=== PATIENT | female | born 1995 | race Two or more races ===

== ENCOUNTER 2016-07-28 17:44 | Emergency (ER) | payer OTHER ==
[~2016-07-28 17:44] MED LIST: CEPH-460 PO; PROZ20CA11 PO
--- NOTE | 2016-07-28 19:14 | PD ---
HPI Chief Complaint Patient complains of some contractions denies bleeding or ruptured membranes, did note decreased movement. [facility] and that was sent over here because of the NST related Date Seen: Jul 28, 2016 Travel History International Travel<30 Days: No Contact w/Intl Traveler<30Days: No History of Present Illness HPI Patient is a 21-year-old white female at 37 weeks is followed for [facility] and was sent over because of a NST and decreased movement. She also complains of contraction activity no bleeding or rupture the membranes, heart rate tracing reactive here on OB ED and only an occasional contraction seen Para: 1 : 2 History Obstetric History Obstetric History One vaginal delivery Social History Alcohol Use: No Tobacco Use: No Substance Abuse: No Allergies-Medications (Allergen,Severity, Reaction): Coded Allergies: Augmentin (Verified Allergy, Severe, RASH, 07/21/16) Penicillin (Verified Allergy, Severe, Hives, 07/21/16) Ampicillin (Verified Allergy, Unknown, 07/21/16) Home Meds Active Scripts Cephalexin (Keflex)500 Mg [id number] Mg PO Q8H #21 CAP Ref 0 Prov:Keira Lopez CNM [facility] 07/21/16 Fluoxetine (Prozac)20 Mg Cap20 Mg PO DAILY #30 CAP Ref 6 Prov:Keira Lopez CNM [facility] 07/21/16 Discontinued Scripts Cephalexin (Keflex)500 Mg [id number] Mg PO Q8H #21 CAP Ref 0 Prov:Dominique Palmer [facility] 07/13/16 Fluoxetine (Prozac)20 Mg Cap20 Mg PO DAILY #30 CAP Ref 6 Prov:Sunitha Pendleton MD 06/16/16 Review of Systems Gastrointestinal: Abdominal Pain Physical Exam Narrative GENERAL: Well-nourished, well-developed patient. SKIN: Warm and dry. HEAD: Normocephalic and atraumatic. EYES: No scleral icterus. No injection or drainage. ENT: No nasal drainage noted. Mucous membranes pink. Airway patent. NECK: Supple, trachea midline. No JVD. CARDIOVASCULAR: Regular rate and rhythm without murmurs, gallops, or rubs. RESPIRATORY: Breath sounds equal bilaterally. No accessory muscle use. BREASTS: Bilateral exam showed no masses , no retractions, no nipple discharge. ABDOMEN/GI: Abdomen soft, non-tender, bowel sounds present, no rebound, no guarding Gravid to [37-] weeks size Fundal Height: [-36 cm] GENITOURINARY: External Genitalia: intact and normal in appearance BUS glands: [-] Cervix:] Posterior Dilatation: [-finger tip] Effacement: [-thick] Station: [-3] Presentation: [-vtx] Membranes: [intact ] Uterine Contractions: [-occasional] FHT's: Category: [-1] Baseline: [144-] Reactive: [-] Variability: [-] Decels: [none-] EXTREMITIES: No cyanosis or edema. BACK: Nontender without obvious deformity. No CVA tenderness. NEUROLOGICAL: Awake and alert. Motor and sensory grossly within normal limits. Five out of 5 muscle strength in all muscle groups. Normal speech. [facility] Medical Record Reviewed: No Interpretation(s) Patient is a 37 week intrauterine referred over from [facility] for a repeat NST and a valve or decreased movement pain. Patient's having some abdominal pain and describes minimal decreased movement no bleeding or rupture the membranes. heart rate tracing reactive here and there all in occasional contraction. Plan Plan for the patient to be discharged home to the [facility] addressed as needed Tylenol for pain increase her fluid intake heating pad or hot bath can be done and she is to follow-up with [facility] Diagnosis Diagnosis: Primary Impression: Regino Morgan contractions Additional Impression: Decreased movement affecting management of in third trimester Disposition: 01 DISCHARGE HOME Condition: Stable Patient Instructions: General Instructions Departure Forms: Tests/Procedures Brendan Guillen II, MD Jul 28, 2016 19:14
[2016-08-10] MEDS ORDERED: TERC20CR VAGINAL (15:51)
[2016-09-10] MEDS ORDERED: PROZ20CA11 PO (09:42)
== END 2016-07-28 19:15 | disposition home or self-care (01) ==
LOC: HOBED 17:44
DX: O47.1 False labor at or after 37 completed weeks of gestation (principal); O36.8130 Decreased fetal movements, third trimester, not applicable or unspecified; Z3A.37 37 weeks gestation of pregnancy
CPT/HCPCS: 59025

== ENCOUNTER 2016-08-13 14:38 | Emergency (ER) | payer OTHER ==
[~2016-08-13 14:38] MED LIST changes: -CEPH-460 PO; +TERC20CR VAGINAL
[2016-08-13 14:56] VITALS: BP 124/80; PULSE 90
--- NOTE | 2016-08-13 15:13 | PD ---
HPI Chief Complaint contractions Date Seen: Aug 13, 2016 Time Seen: 15:06 (Karthik Paredes MD R1) Travel History International Travel<30 Days: No Contact w/Intl Traveler<30Days: No (Karthik Paredes MD R1) History of Present Illness HPI 21 y/o at 39/4 weeks presents for contractions. States she developed cramping last night that turned into contractions. Unsure of how far apart they are. States they cause a lot of pressure and are painful. Denies vaginal bleeding, loss of fluids. Endorses movement. Denies any complications with this . No dysuria. Endorses headaches and swelling in her legs the last few weeks. No lightheadedness/dizziness, chest pain, SOB, leg pain. [facility]. Para: 1 : 2 (Karthik Paredes MD R1) History Past Medical History Medical History: Denies Significant Hx (Karthik Paredes MD R1) Obstetric History Obstetric History , born at term (Karthik Paredes MD R1) Past Surgical History Narrative Surgical breast augmentation 02/2015 (Karthik Paredes MD R1) Family History Family History: Negative (Karthik Paredes MD R1) Social History Alcohol Use: No Tobacco Use: No Substance Abuse: No (Karthik Paredes MD R1) Allergies-Medications (Allergen,Severity, Reaction): Coded Allergies: Augmentin (Verified Allergy, Severe, RASH, 08/10/16) Penicillin (Verified Allergy, Severe, Hives, 08/10/16) Ampicillin (Verified Allergy, Unknown, 08/10/16) Home Meds Active Scripts Terconazole Vaginal Cream (Terazol 3 Vaginal Cream)0.8 % Cream1 Appl VAGINAL HS #20 GM Ref 0 1 applicatorful intravaginally x 3 nights Prov:Keira Lopez CNM [facility] 08/10/16 Fluoxetine (Prozac)20 Mg Cap20 Mg PO DAILY #30 CAP Ref 6 Prov:Keira Lopez CNM [facility] 07/21/16 Narrative Medication Prozac Subutex 3 daily (Karthik Paredes MD R1) Review of Systems General / Constitutional: Weight Gain, No: Fever, Weight Loss, Chills Eyes: No: Blurred Vision, Visual changes HENT: Headaches, No: Lightheadedness Cardiovascular: Edema, No: Irregular Rhythm, Chest Pain or Discomfort, Palpitations, Syncope Respiratory: No: Cough, Short of Breath Gastrointestinal: No: Nausea, Vomiting, Diarrhea, Abdominal Pain, Constipation Genitourinary: Pelvic Pain, No: Urgency, Frequency, Dysuria, Nocturia, Hematuria, Discharge, Vaginal Bleeding Musculoskeletal: Edema, No: Limited ROM, Weakness Skin: No Rash, No Itching Neurologic: No: Weakness, Dizziness, Syncope Psychiatric: No: Anxiety, Depression Endocrine: No: Heat Intolerance, Cold Intolerance Hematologic/Lymphatic: No Easy Bruising, No Lymph Node Enlargement (Karthik Paredes MD R1) Physical Exam Narrative GENERAL: Well-nourished, well-developed patient. SKIN: Warm and dry. HEAD: Normocephalic and atraumatic. EYES: No scleral icterus. No injection or drainage. ENT: No nasal drainage noted. Mucous membranes pink. Airway patent. NECK: Supple, trachea midline. No JVD. CARDIOVASCULAR: Regular rate and rhythm without murmurs, gallops, or rubs. RESPIRATORY: Breath sounds equal bilaterally. No accessory muscle use. ABDOMEN/GI: Abdomen soft, non-tender, bowel sounds present, no rebound, no guarding Gravid to 39 weeks size Fundal Height: 39 GENITOURINARY: Dilatation: 3-4 Effacement: 70% Station: -2 Presentation: vertex Membranes: intact Uterine Contractions: none FHT's: Category: 1 Baseline:155 Reactive: yes Variability: moderate Decels: none EXTREMITIES: No cyanosis or edema. BACK: Nontender without obvious deformity. No CVA tenderness. NEUROLOGICAL: Awake and alert. Motor and sensory grossly within normal limits. Five out of 5 muscle strength in all muscle groups. Normal speech. (Karthik Paredes MD R1) Data Data Vital Signs Reviewed: Yes (Karthik Paredes MD R1) MDM Medical Record Reviewed: Yes Interpretation(s) 21 y/o at 39/4 weeks presents with contractions. Ruskin schaeffer vs latent labor Cervical exam: 3-4/70/-2 Plan - Continuous FHT - Monitor vitals Narrative Course / MDM Category 1 tracing. FHT is reactive. No regular contractions Discussed with patient and gave option of walking around and rechecking in 1 hour or going home to walk around and progress She would like to go home and walk around. Instructed to return to ED if worsening pain, regular contractions or other signs of labor. (Karthik Paredes MD R1) Attending Attestation 21 yo @ 39w4d with care at [facility]. Uncomplicated . Patient c/o irregular UC, no VB, LOF. +FM. NST reactive, CAT I Irregular UC with SVE 3-4cm Latent labor, offered recheck in one hour. Patient desires to go home and with return if UC become more regular, stronger or if LOF. Labor precautions reviewed. Patient seen and examined. D/w Dr. Paredes. (Lorna Ring MD) Diagnosis Diagnosis: Primary Impression: Qualified Code: Z3A.39 - 39 weeks gestation of Disposition: 01 DISCHARGE HOME Condition: Stable Karthik Paredes MD R1 Aug 13, 2016 15:13 Lorna Ring MD Aug 13, 2016 16:17
[2016-08-14] MEDS ORDERED: SUBO8MIS SL (14:01)
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
[2016-09-10] MEDS ORDERED: PROZ20CA11 PO (09:42)
== END 2016-08-13 16:10 | disposition home or self-care (01) ==
LOC: HOBED 14:38
DX: O26.93 Pregnancy related conditions, unspecified, third trimester (principal); Z3A.39 39 weeks gestation of pregnancy
CPT/HCPCS: 59025

== ENCOUNTER 2016-08-14 13:20 | Emergency (ER) | payer OTHER ==
[2016-08-14] MEDS ORDERED: SUBO8MIS SL (14:01)
--- NOTE | 2016-08-14 14:20 | PD ---
HPI Chief Complaint contractions Date Seen: Aug 14, 2016 Time Seen: 14:01 (Karthik Paredes MD R1) Travel History International Travel<30 Days: No Contact w/Intl Traveler<30Days: No Known Affected Area: No (Karthik Paredes MD R1) History of Present Illness HPI 21 y/o at 39/5 presents for contractions. Was seen yesterday in ED for cramping and contractions. In the ED, she had no contractions and decided to go home and walk around and progress at home. Since then, she tried to get some sleep, but couldn't sleep because of contractions. Stated they became more painful since yesterday and closer together. She states they were 4-6 minutes apart early this morning. Denies vaginal bleeding, loss of fluids. Endorses movement. Denies headaches, changes in vision, RUQ pain, dysuria. No chest pain, lightheadedness/dizziness, SOB, leg pain, edema. Para: 1 : 2 (Karthik Paredes MD R1) History Past Medical History Medical History: Denies Significant Hx (Karthik Paredes MD R1) Obstetric History Obstetric History , born at term (Karthik Paredes MD R1) Past Surgical History Narrative Surgical Breast augmentation 02/2015 (Karthik Paredes MD R1) Family History Family History: Negative (Karthik Paredes MD R1) Social History Alcohol Use: No Tobacco Use: No Substance Abuse: No (Karthik Paredes MD R1) Allergies-Medications (Allergen,Severity, Reaction): Coded Allergies: Augmentin (Verified Allergy, Severe, RASH, 08/14/16) Penicillin (Verified Allergy, Severe, Hives, 08/14/16) Ampicillin (Verified Allergy, Unknown, 08/14/16) Home Meds Active Scripts Terconazole Vaginal Cream (Terazol 3 Vaginal Cream)0.8 % Cream1 Appl VAGINAL HS #20 GM Ref 0 1 applicatorful intravaginally x 3 nights Prov:Keira Lopez CNM [facility] 08/10/16 Fluoxetine (Prozac)20 Mg Cap20 Mg PO DAILY #30 CAP Ref 6 Prov:Keira Lopez CNM [facility] 07/21/16 Reported Medications Buprenorphine-Naloxone Sublingual Film (Suboxone Sublingual Film)8-2 Mg Film1 Film SL Unique ID number required: 08/14/16 Review of Systems General / Constitutional: Weight Gain, No: Fever, Weight Loss, Chills Eyes: No: Blurred Vision, Visual changes HENT: No: Headaches, Vertigo Cardiovascular: No: Irregular Rhythm, Chest Pain or Discomfort, Palpitations Respiratory: No: Cough, Short of Breath Gastrointestinal: No: Nausea, Vomiting, Diarrhea, Abdominal Pain, Constipation Genitourinary: Pelvic Pain, Discharge, No: Urgency, Frequency, Dysuria, Vaginal Bleeding Musculoskeletal: No: Limited ROM, Weakness Skin: No Rash, No Itching Neurologic: No: Weakness, Dizziness, Headache Psychiatric: No: Anxiety, Depression Endocrine: No: Heat Intolerance, Cold Intolerance Hematologic/Lymphatic: No Easy Bruising, No Lymph Node Enlargement (Karthik Paredes MD R1) Physical Exam Narrative GENERAL: Well-nourished, well-developed patient. SKIN: Warm and dry. HEAD: Normocephalic and atraumatic. EYES: No scleral icterus. No injection or drainage. ENT: No nasal drainage noted. Mucous membranes pink. Airway patent. NECK: Supple, trachea midline. No JVD. CARDIOVASCULAR: Regular rate and rhythm without murmurs, gallops, or rubs. RESPIRATORY: Breath sounds equal bilaterally. No accessory muscle use. ABDOMEN/GI: Abdomen soft, non-tender, bowel sounds present, no rebound, no guarding Gravid to 39 weeks size Fundal Height: 39 GENITOURINARY: External Genitalia: intact and normal in appearance Dilatation: 3-4 Effacement: 50% Station: -2 Presentation: vertex Membranes: intact Uterine Contractions: occasional FHT's: Category: 1 Baseline: 130 Reactive: yes Variability: moderate Decels: none EXTREMITIES: No cyanosis or edema. BACK: Nontender without obvious deformity. No CVA tenderness. NEUROLOGICAL: Awake and alert. Motor and sensory grossly within normal limits. Five out of 5 muscle strength in all muscle groups. Normal speech. (Karthik Paredes MD R1) Data Data Vital Signs Reviewed: Yes Orders Vital Signs (Adult) .ON ADMISSION (08/14/16 14:09) ^ Labor Status (08/14/16 14:09) ^ Non Stress Test (08/14/16 14:09) (Karthik Paredes MD R1) MDM Interpretation(s) 21 y/o at 39/5 presents with contractions. Uncomplicated -VB, LOF. +FM Plan - FHT - Monitor vitals Narrative Course / MDM Category 1 FHT, reactive NST Cervical check: 3-/-2 Patient unchanged from yesterday. Latent labor. D/c home and return if more regular, stronger contractions or loss of fluids ( Karthik Paredes MD R1) Attending Attestation Patient seen and evaluated with resident under direct supervision, agree with assessment and plan. (Husam Casanova MD) Diagnosis Diagnosis: Primary Impression: 39 weeks gestation of Disposition: DISCHARGE HOME Condition: Stable Karthik Paredes MD R1 Aug 14, 2016 14:20 Husam Casanova MD Aug 14, 2016 16:17
[2016-09-10] MEDS ORDERED: PROZ20CA11 PO (09:42)
== END 2016-08-14 15:03 | disposition home or self-care (01) ==
LOC: HOBED 13:20
DX: O26.93 Pregnancy related conditions, unspecified, third trimester (principal); R10.9 Unspecified abdominal pain; Z3A.39 39 weeks gestation of pregnancy
CPT/HCPCS: 59025

== ENCOUNTER 2016-08-15 03:57 | Inpatient (IN) | payer OTHER ==
[~2016-08-15] VITALS: Ht 162.6 cm; Wt 92.1 kg
[2016-08-15] VITALS (16 sets, daily range): BP systolic 106–146; BP diastolic 53–85; PULSE 82–105; RESP 16–20; TEMP 97.6–98; O2SAT 97–100
[~2016-08-15 03:57] MED LIST changes: +SUBO8MIS SL
[2016-08-15] MEDS ORDERED: fentaNYL 2MCG-BUPIV 0.125% INJ 100 ML ONE (05:08)
[2016-08-15] MEDS ORDERED: ePHEDrine/NS 50 MG/5 ML SYR ONE (05:09)
[2016-08-15 05:10] LABS: AUTOMATED NEUTROPHIL # 6.9 TH/MM3 (1.8-7.7); BASOPHIL % 0.2 % (0.0-2.0); EOSINOPHIL # 0.1 TH/MM3 (0-0.4); EOSINOPHIL % 0.8 % (0.0-4.0); HEMATOCRIT 34.1 % (35.0-46.0); HEMO FLAGS DIFF FINAL; LYMPH % 21.5 % (9.0-44.0); LYMPHOCYTE # 2.1 TH/MM3 (1.0-4.8); MEAN CELL VOLUME 82.9 FL (80.0-100.0); MEAN CORPUSCULAR HEMOGLOBIN 27.5 PG (27.0-34.0); MEAN CORPUSCULAR HGB CONC 33.1 % (32.0-36.0); NEUT % 71.5 % (16.0-70.0); PLATELET COUNT 290 TH/MM3 (150-450); RED BLOOD COUNT 4.11 MIL/MM3 (4.00-5.30); RED CELL DISTRIBUTION WIDTH 14.5 % (11.6-17.2); WHITE BLOOD COUNT 9.7 TH/MM3 (4.0-11.0)
[2016-08-15 05:40] LABS: BACTERIA, URINE RARE /hpf; BLOOD, URINE SMALL (NEG); COMMENT (UR) CULTURE INDICATED; CULTURE IF INDICATED CULTURE INDICATED; GLUCOSE,URINE NEG (NEG); KETONE, URINE NEG (NEG); MUCUS URINE FEW /lpf (OCC); NITRITE,URINE NEG (NEG); PH, URINE 5.5 (5.0-8.5); SQUAMOUS EPITHELIAL CELL URINE 7 /hpf (0-5); URINE COLOR YELLOW (YELLW/STRAW)
[2016-08-15] MEDS ORDERED: DO NOT ADMINISTER ANTICOAGULANTS XX PRN (05:45)
[2016-08-15] MEDS ORDERED: NO SYSTEM NARCOTICS XX PRN (05:45)
[2016-08-15] MEDS ORDERED: fentaNYL 2MCG-BUPIV 0.125% INJ 100 ML EPIDURAL SCH (05:45)
[2016-08-15] MEDS ORDERED: ePHEDrine/NS 50 MG/5 ML SYR IV PRN (05:45)
[2016-08-15 05:52] LABS: BARBITURATES, URINE NEG (NEG); COCAINE, URINE NEG (NEG)
[2016-08-15 05:54] LABS: ALKALINE PHOSPHATASE 147 U/L (45-117); ALT (GPT) 25 U/L (9-42); ANION GAP 12 MEQ/L (5-15); AST (GOT) 23 U/L (16-38); BICARBONATE 22.5 MEQ/L (21.0-32.0); BLOOD UREA NITROGEN 13 MG/DL (7-18); CHLORIDE 105 MEQ/L (98-107); GLOMERULAR FILTRATION RATE 108 ML/MIN (>89); POTASSIUM 3.8 MEQ/L (3.5-5.1); SODIUM (NA) 139 MEQ/L (136-145); TOTAL BILIRUBIN ADULT LESS THAN 0.1 MG/DL (0.2-1.0)
[2016-08-15 05:55] LABS: AMPHETAMINE, URINE NEG (NEG)
[2016-08-15] MEDS ORDERED: LACTATED RINGER'S 1000 ML INJ 1,000 ML IV SCH ×2 (06:37→13:40)
[2016-08-15] MEDS ORDERED: LACTATED RINGER'S 1000 ML INJ 1,000 ML IV PRN (06:37)
[2016-08-15] MEDS ORDERED: OXYTOCIN 30 UNITS-500ML PREMIX 500 ML IV ONE ×2 (06:45→08:45)
[2016-08-15] MEDS ORDERED: SODIUM CHLORID 0.9% 500 ML INJ 500 ML IV PRN (06:45)
[2016-08-15] MEDS ORDERED: LIDOCAINE HCL 1% 50 ML VIAL INFIL PRN (06:45)
[2016-08-15] MEDS ORDERED: CITRIC ACID-SODIUM CITRATE LIQ 30 ML UDC PO SCH (06:45)
[2016-08-15] MEDS ORDERED: MINERAL OIL 10 ML VIAL TOPICAL PRN (06:45)
[2016-08-15] MEDS ORDERED: LIDOCAINE HCL 1% 50 ML VIAL I-DERMAL PRN (06:45)
[2016-08-15] MEDS ORDERED: SODIUM CHLOR 0.9% 1000 ML INJ 1,000 ML IV PRN (06:57)
[2016-08-15] MEDS ORDERED: ceFAZolin INJ 1,000 MG VIAL ONE (08:01)
--- NOTE | 2016-08-15 08:39 | PD.OB.DELI ---
Procedure Note Section Procedure Pre Op Diagnosis bradycardia Post Op Diagnosis: Post Op Diagnosis Same plus shoulder cord Performed by Husam Casanova Indication for delivery: Nonreassuring heart tracing ( bradycardia) Confirmed correct: Patient, Procedure, Site, Time-out taken Anesthesia: Epidural Sterile preparation: With 2% chlorexidine (Hibiclens), With drapes to expose affected area Position: Supine Operative Features Skin Incision: Transverse Uterine Incision: Low transverse w/knife / blunt ext Membranes Ruptured: Previously Presentation: Other (Hospital transverse) Delivery of infant: Uneventful : Female One Minute : 9 Five Minute : 9 Weight: 2810 Status of : Viable Placenta delivered: Intact Medications: Antibiotics, Oxytocin Estimated blood loss: 500 Procedure tolerated: Well Maternal Condition: Stable Condition: Stable Procedure in detail The patient was laboring under epidural analgesia and had a category 2 tracing with moderate variability and intermittent variable decelerations with late recovery. She then experienced an episode of bradycardia and the decision was made proceed with emergent delivery. The patient was taken to the back and prepped and draped. Due to the emergent nature of the procedure preoperative antibiotics were not administered prior to incision. A transverse lower abdominal incision was made and carried out down to level of the fascia which was nicked in the midline and extended bilaterally with scissors. The fascia was from the underlying muscle with sharp and blunt dissection. The muscles bluntly divided in the midline and the peritoneal cavity was bluntly entered. Bladder flap was crated with sharp dissection. A transverse hysterotomy was made and extended bilaterally with digital traction. The vertex was elevated out of the pelvic inlet and delivered easily through the hysterotomy. A loop of umbilical cord was around the posterior shoulder and was easily reduced. The nose and mouth were bulb suctioned and the remainder the was easily extracted. The cord was doubly clamped and cut and the baby was passed to the waiting attendants. Cord blood segment for cord gas was obtained. Cord blood sample was obtained. With fundal massage and gentle cord traction the placenta delivered spontaneously. It was grossly normal and apparently intact. Uterine cavity was wiped with a moistened lap sponge and the uterus was exteriorized. The hysterotomy was closed with a running suture of 0 Monocryl. After observing excellent hemostasis normal-appearing tubes ovaries and uterus the paracolic gutter and posterior cul-de-sac were evacuated of amniotic fluid and blood. The fascia was then closed with a running suture of #1 PDS. The subcutaneous tissue was closed with 3-0 Vicryl and the skin with subcuticular 4- 0 Vicryl and tissue glue. Husam Casanova MD Aug 15, 2016 08:39
[2016-08-15] MEDS ORDERED: SODIUM CHLORIDE 0.9% FLUSH 5 ML FLUSH IV PRN (08:45)
[2016-08-15] MEDS ORDERED: ZOLPIDEM TARTRATE 5 MG TAB PO PRN (08:45)
[2016-08-15] MEDS ORDERED: ACETAMINOPHEN 1000 MG/100 ML VIAL IV ONE ×2 (08:45→09:55)
[2016-08-15] MEDS ORDERED: SODIUM CHLORIDE 0.9% FLUSH 5 ML FLUSH IV SCH (09:00)
--- NOTE | 2016-08-15 09:05 | RADRPT ---
EXAM DATE/TIME: 08/15/2016 08:07 [place] COMPARISON: No previous studies available for comparison. INDICATIONS : Possible foreign body, patient in labor and delivery OR. MEDICAL HISTORY : None. SURGICAL HISTORY : Breast augmentation ENCOUNTER: Initial ACUITY: 1 day PAIN SCORE: Non-responsive. LOCATION: Bilateral Abdomen FINDINGS: 2 frontal views of the abdomen and pelvis were obtained and demonstrate no radiopaque foreign bodies. Air in the pelvis is likely related to the recent surgery. There is subtle widening of the pubic sym physis consistent with recent . No acute osseous abnormality is seen. CONCLUSION: No retained radiopaque foreign body is visualized. Luther Torres MD on August 15, 2016 at 9:02 Board Certified Radiologist. This report was verified electronically.
[2016-08-15] MEDS ORDERED: MORPHINE SULFATE PF 5 MG/10 ML VIAL ONE (09:10)
[2016-08-15] MEDS ORDERED: OXYTOCIN 30 UNITS-500ML PREMIX 500 ML IV PRN (18:45)
[2016-08-15] MEDS: IBUPROFEN 600 MG TAB PO PRN (20:08)
[2016-08-15] MEDS: oxyCODONE/ACETAMINOPHEN 5 MG/325 MG TAB PO PRN (20:09)
[2016-08-16] MEDS: oxyCODONE/ACETAMINOPHEN 5 MG/325 MG TAB PO PRN ×3 (02:04→18:17)
[2016-08-16] MEDS: IBUPROFEN 600 MG TAB PO PRN ×3 (02:04→18:17)
[2016-08-16 07:30] LABS: AUTOMATED NEUTROPHIL # 8.6 TH/MM3 (1.8-7.7); BASOPHIL % 0.3 % (0.0-2.0); EOSINOPHIL # 0.1 TH/MM3 (0-0.4); EOSINOPHIL % 0.5 % (0.0-4.0); HEMATOCRIT 32.1 % (35.0-46.0); HEMO FLAGS DIFF FINAL; LYMPH % 21.5 % (9.0-44.0); LYMPHOCYTE # 2.6 TH/MM3 (1.0-4.8); MEAN CELL VOLUME 83.7 FL (80.0-100.0); MEAN CORPUSCULAR HEMOGLOBIN 27.3 PG (27.0-34.0); MEAN CORPUSCULAR HGB CONC 32.6 % (32.0-36.0); MONO % 6.9 % (0.0-8.0); NEUT % 70.8 % (16.0-70.0); PLATELET COUNT 245 TH/MM3 (150-450); RED BLOOD COUNT 3.83 MIL/MM3 (4.00-5.30); RED CELL DISTRIBUTION WIDTH 14.4 % (11.6-17.2); WHITE BLOOD COUNT 12.2 TH/MM3 (4.0-11.0)
--- NOTE | 2016-08-16 07:54 | HHI.OB ---
Subjective Post Operative Day: 1 Remarks 21 year old female s/p C/S at 39/6 wks gestation, POD 1. AFVSS. Patient reports she is feeling well. Bleeding is decreasing and pain is well- controlled. She is formula feeding and bonding well with baby. Ambulating without difficulties. She is tolerating a diet without nausea or vomiting. She has not had a bowel movement. She has passed gas. Denies chest pain, dysuria, shortness of breath, or calf pain. Objective Vitals/I&O Vital Signs Date Time Temp Pulse Resp B/P Pulse Ox O2 Delivery O2 Flow Rate FiO2 08/16/16 03:00 16 08/16/16 03:00 16 08/15/16 19:50 98.0 87 20 111/59 98 08/15/16 10:08 93 18 120/73 08/15/16 09:50 18 100 08/15/16 09:50 97 08/15/16 09:49 82 128/78 08/15/16 09:33 130/71 08/15/16 09:31 100 08/15/16 09:30 84 18 08/15/16 09:24 97.6 16 99 08/15/16 09:23 92 08/15/16 09:23 136/76 Result Diagram: 08/16/16 0713 08/15/16 0450 Objective Remarks GENERAL: Well-nourished, well-developed patient sitting up in bed in [facility]. CARDIOVASCULAR: Regular rate and rhythm without murmurs, gallops, or rubs. RESPIRATORY: Breath sounds equal bilaterally. No accessory muscle use. ABDOMEN/GI: Abdomen soft, non-tender, bowel sounds present. Incision: Clean, dry and intact. Fundus: Firm, non-tender at umbilicus. GENITOURINARY: Light to moderate bleeding. EXTREMITIES: No cyanosis or edema, non-tender, without signs of DVT. Medications and IVs Current Medications Medications (Trade) Dose Ordered Sig/[place] Route Start Time Stop Time Status Last Admin Fentanyl/ Bupivacaine HCl 100 ml @ 0 mls/hr TITRATE EPIDURAL 08/15/16 05:45 Lactated Ringer's 1,000 ml @ 125 mls/hr Q8H IV 08/15/16 06:37 08/15/16 10:01 Lactated Ringer's 1,000 ml @ 3,000 mls/hr Q20M PRN IV 08/15/16 06:37 08/15/16 10:03 (NS 1000 ml Inj) 1,000 ml @ 100 mls/hr Q10H PRN IV 08/15/16 06:57 (fentaNYL INJ) 50 mcg Q1H PRN IV PUSH 08/15/16 06:45 (fentaNYL INJ) 100 mcg Q1H PRN IV PUSH 08/15/16 06:45 Mineral Oil 10 ml 10 ml UNSCH PRN TOPICAL 08/15/16 06:45 (Lr 1000 ml Inj) 1,000 ml @ 100 mls/hr Q10H IV 08/15/16 13:40 08/16/16 09:39 08/15/16 10:02 (NS Flush) 2 ml BID IV 08/15/16 09:00 (NS Flush) 2 ml UNSCH PRN IV 08/15/16 08:45 (Motrin) 600 mg Q6H PRN PO 08/15/16 08:45 08/16/16 02:04 (Percocet 5-325 Mg) 1 tab Q4H PRN PO 08/15/16 08:45 08/16/16 02:04 (Percocet 5-325 Mg) 2 tab Q4H PRN PO 08/15/16 08:45 (Ambien) 5 mg HS PRN PO 08/15/16 08:45 (M-M-R Ii Inj) 0.5 ml ONCE ONCE SQ 08/16/16 16:00 08/16/16 16:01 (Boostrix Inj) 0.5 ml ONCE ONCE IM 08/16/16 16:00 08/16/16 16:01 Assessment/Plan Problem List: (1) delivery delivered Assessment and Plan 21 yo female s/p C/S POD 1. - AFVSS - Continue routine care - Motrin and Percocet PRN pain - Encourage OOB - Pelvic rest x 6 wks. - Contraception: Still deciding, will discuss with Keira Lopez - Anticipate D/C 08/17 or 08/18 Discharge Planning Home 08/17 or 08/18 Blayne Ivan MD R1 Aug 16, 2016 07:54
[2016-08-16] MEDS: BISACODYL EC 5 MG TABEC PO SCH (12:30)
[2016-08-16] MEDS: DOCUSATE SODIUM 100 MG CAP PO SCH ×2 (13:31→20:51)
[2016-08-16] MEDS ORDERED: MEASLES, MUMPS, RUBELLA VACCINE 0.5 ML VIAL SQ ONE (16:00)
[2016-08-16] MEDS ORDERED: DIPHTH/TETANUS/ACEL PERTUSSIS (BOOSTER) 0.5 ML VIAL/PFS IM ONE (16:00)
[2016-08-17] MEDS: IBUPROFEN 600 MG TAB PO PRN ×3 (00:28→17:10)
[2016-08-17] MEDS: oxyCODONE/ACETAMINOPHEN 5 MG/325 MG TAB PO PRN ×5 (00:29→21:09)
[2016-08-17 08:00] VITALS: BP_SYST 120; BP_SYST 123; BP_DIAS 66; BP_DIAS 78
[2016-08-17 08:12] VITALS: PULSE 76; RESP 18; TEMP 98.8
--- NOTE | 2016-08-17 08:19 | HHI.OB ---
Subjective Remarks 21 year old female s/p C/S at 39/6 wks gestation, POD 2. Pain in lower abdomen and lower back, well controlled with pain medication. Lochia is less than menstrual period. She is formula feeding currently. She is ambulating. She is tolerating a diet without nausea or vomiting. She's had a bowel movement. No complaints about the incision site. No chest pain, dysuria, shortness of breath, or calf pain. (Maxi Edwards MD R2) Objective Result Diagram: 08/16/16 0713 08/15/16 0450 Objective Remarks GENERAL: Well-nourished, well-developed patient sitting up in bed in NAD. CARDIOVASCULAR: Regular rate and rhythm without murmurs, gallops, or rubs. RESPIRATORY: Breath sounds equal bilaterally. No accessory muscle use. ABDOMEN/GI: Abdomen soft, non-tender, bowel sounds present. Incision: Clean, dry and intact. Fundus: Firm, non-tender at umbilicus. GENITOURINARY: Light bleeding. EXTREMITIES: No cyanosis or edema, non-tender, without signs of DVT. Medications and IVs Current Medications Medications (Trade) Dose Ordered Sig/[place] Route Start Time Stop Time Status Last Admin Fentanyl/ Bupivacaine HCl 100 ml @ 0 mls/hr TITRATE EPIDURAL 08/15/16 05:45 Lactated Ringer's 1,000 ml @ 125 mls/hr Q8H IV 08/15/16 06:37 08/15/16 10:01 Lactated Ringer's 1,000 ml @ 3,000 mls/hr Q20M PRN IV 08/15/16 06:37 08/15/16 10:03 (NS 1000 ml Inj) 1,000 ml @ 100 mls/hr Q10H PRN IV 08/15/16 06:57 (fentaNYL INJ) 50 mcg Q1H PRN IV PUSH 08/15/16 06:45 (fentaNYL INJ) 100 mcg Q1H PRN IV PUSH 08/15/16 06:45 (Muri-Lube Oil) 10 ml UNSCH PRN TOPICAL 08/15/16 06:45 (NS Flush) 2 ml BID IV 08/15/16 09:00 (NS Flush) 2 ml UNSCH PRN IV 08/15/16 08:45 (Motrin) 600 mg Q6H PRN PO 08/15/16 08:45 08/17/16 00:28 (Percocet 5-325 Mg) 1 tab Q4H PRN PO 08/15/16 08:45 08/17/16 05:22 (Percocet 5-325 Mg) 2 tab Q4H PRN PO 08/15/16 08:45 (Ambien) 5 mg HS PRN PO 08/15/16 08:45 (Colace) 100 mg BID PO 08/16/16 12:30 08/16/16 20:51 (Dulcolax Ec) 10 mg DAILY PO 08/16/16 12:30 (Maxi Edwards MD R2) Assessment/Plan Problem List: (1) delivery delivered Assessment and Plan 21 yo female s/p C/S POD 2. - Motrin and Percocet PRN pain - Encourage OOB - Pelvic rest x 6 wks. - Contraception: Prefers oral contraception, will discuss with Keira Lopez - Baby currently in NICU, encourage frequent visits and bonding. - Educate on benefits of . - Anticipate D/C tomorrow. (Maxi Edwards MD R2) Attending Attestation Patient seen and examined with the resident under direct supervision, I agree with the assessment and plan. (Edson Manzo MD) Maxi Edwards MD R2 Aug 17, 2016 08:19 Edson Manzo MD Aug 18, 2016 17:49
[2016-08-17] MEDS: BISACODYL EC 5 MG TABEC PO SCH (09:35)
[2016-08-17] MEDS: DOCUSATE SODIUM 100 MG CAP PO SCH ×2 (09:35→21:08)
[2016-08-18] MEDS: IBUPROFEN 600 MG TAB PO PRN ×2 (01:10→07:21)
[2016-08-18] MEDS: oxyCODONE/ACETAMINOPHEN 5 MG/325 MG TAB PO PRN ×2 (01:10→07:21)
[2016-08-18 02:10] VITALS: RESP 18
[2016-08-18] MEDS ORDERED: IBUP-232 PO (07:23)
[2016-08-18] MEDS ORDERED: OXYC1TAB63 PO (07:23)
--- NOTE | 2016-08-18 07:24 | HHI.DCPOC ---
Discharge Care Plan Diagnosis: (1) delivery delivered Goals to Promote Your Health * To prevent worsening of your condition and complications * To maintain your health at the optimal level Directions to Meet Your Goals Take your medications as prescribed Follow your dietary instruction Follow activity as directed Keep your appointments as scheduled Take your immunizations and boosters as scheduled If your symptoms worsen call your PCP, if no PCP go to Urgent Care Center or Emergency Room Smoking is Dangerous to Your Health. Avoid second hand smoke Call the 24-hour hour crisis hotline for domestic abuse at Maxi Edwards MD R2 Aug 18, 2016 07:24
--- NOTE | 2016-08-18 07:35 | HHI.OB ---
Subjective Remarks 21 year old female s/p C/S at 39/6 wks gestation, POD 3. Pain in left lower abdomen, controlled with pain medication. Lochia is less than menstrual period. She is formula feeding. She is ambulating. She is tolerating a diet without nausea or vomiting. She's had a bowel movement. No complaints about the incision site. No chest pain, dysuria, shortness of breath, or calf pain. (Maxi Edwards MD R2) Objective Vitals/I&O Vital Signs Date Time Temp Pulse Resp B/P Pulse Ox O2 Delivery O2 Flow Rate FiO2 08/18/16 02:10 18 08/18/16 02:10 18 08/17/16 22:09 18 08/17/16 08:12 98.8 76 18 08/17/16 08:00 123/78 08/17/16 08:00 120/66 (Maxi Edwards MD R2) Result Diagram: 08/16/16 0713 08/15/16 0450 Objective Remarks GENERAL: Well-nourished, well-developed patient sitting up in bed in [facility]. CARDIOVASCULAR: Regular rate and rhythm without murmurs, gallops, or rubs. RESPIRATORY: Breath sounds equal bilaterally. No accessory muscle use. ABDOMEN/GI: Abdomen soft, non-tender, bowel sounds present. Incision: Clean, dry and intact. Fundus: Firm, non-tender at umbilicus. GENITOURINARY: Light bleeding. EXTREMITIES: No cyanosis or edema, non-tender, without signs of DVT. Medications and IVs Current Medications Medications (Trade) Dose Ordered Sig/[facility] Route Start Time Stop Time Status Last Admin Fentanyl/ Bupivacaine HCl 100 ml @ 0 mls/hr TITRATE EPIDURAL 08/15/16 05:45 Lactated Ringer's 1,000 ml @ 125 mls/hr Q8H IV 08/15/16 06:37 08/15/16 10:01 Lactated Ringer's 1,000 ml @ 3,000 mls/hr Q20M PRN IV 08/15/16 06:37 08/15/16 10:03 (NS 1000 ml Inj) 1,000 ml @ 100 mls/hr Q10H PRN IV 08/15/16 06:57 (fentaNYL INJ) 50 mcg Q1H PRN IV PUSH 08/15/16 06:45 (fentaNYL INJ) 100 mcg Q1H PRN IV PUSH 08/15/16 06:45 (Muri-Lube Oil) 10 ml UNSCH PRN TOPICAL 08/15/16 06:45 (NS Flush) 2 ml BID IV 08/15/16 09:00 (NS Flush) 2 ml UNSCH PRN IV 08/15/16 08:45 (Motrin) 600 mg Q6H PRN PO 08/15/16 08:45 08/18/16 07:21 (Percocet 5-325 Mg) 1 tab Q4H PRN PO 08/15/16 08:45 08/17/16 21:09 (Percocet 5-325 Mg) 2 tab Q4H PRN PO 08/15/16 08:45 08/18/16 07:21 (Ambien) 5 mg HS PRN PO 08/15/16 08:45 (Colace) 100 mg BID PO 08/16/16 12:30 08/17/16 21:08 (Dulcolax Ec) 10 mg DAILY PO 08/16/16 12:30 08/17/16 09:35 (Maxi Edwards MD R2) Assessment/Plan Problem List: (1) delivery delivered Assessment and Plan 21 yo female s/p C/S POD 3. - Motrin and Percocet PRN pain - Encourage OOB - Pelvic rest x 6 wks. - Contraception: Prefers oral contraception, will discuss with Keira Lopez - Baby currently in NICU, encourage frequent visits and bonding. - Educate on benefits of . - Anticipate D/C today (Maxi Edwards MD R2) Attending Attestation POD #3 s/p Doing well baby in NICU. Pain moderate control, Percocet, Motrin. Uses Subutex at home Patient restarted Prozac D/c home today Reviewed PP precautions F/u 2 weeks at [facility] Patient seen and examined with Dr. Paredes and Dr. Edwards (Lorna Ring MD) Maxi Edwards MD R2 Aug 18, 2016 07:35 Lorna Ring MD Aug 18, 2016 08:52
[2016-08-18] MEDS ORDERED: FLUoxetine HCL 20 MG CAP PO ONE (07:45)
[2016-08-18] MEDS: BISACODYL EC 5 MG TABEC PO SCH (09:00)
[2016-08-18] MEDS: DOCUSATE SODIUM 100 MG CAP PO SCH (09:00)
[2016-08-22 12:40] LABS: BATH SALTS (MDPV) UR NEG (NEG); ECSTASY (MDMA) UR NEG (NEG); HEROIN (6-ACETYLMORPHINE) UR NEG (NEG); K2 SPICE UR NEG (NEG); OBMETHADONE UR NEG (NEG); PHENCYCLIDINE URINE NEG (NEG)
[2016-08-22 12:41] LABS: OXYCODONE (PERCODAN) NEG (NEG)
[2016-09-10] MEDS ORDERED: PROZ20CA11 PO (09:42)
== END 2016-08-18 10:44 | disposition left against medical advice (07) | DRG 766 ==
LOC: HOBED 03:57 → H2EA 04:17 → H1EA 10:52 → UNDODISIN 08-18 10:46
PROVIDERS: ADMIT Obstetrics & Gynecology; ATTEND Obstetrics & Gynecology
PROC: 10D00Z1 Extraction of Products of Conception, Low, Open Approach (ICD-10-PCS; principal; 2016-08-15)
DX: O76 Abnormality in fetal heart rate and rhythm complicating labor and delivery (principal); O69.82X0 Labor and delivery complicated by other cord entanglement, without compression, not applicable or unspecified; Z37.0 Single live birth; Z3A.39 39 weeks gestation of pregnancy
CPT/HCPCS: 59025; 74000; 80053; 80307; 81001; 84112; 85025; 86850; 86900; 86901; 87086; 90715; 99285; G0481; J0131; J0690; J2274; J7120

== ENCOUNTER 2016-09-15 00:08 | Emergency (ER) | payer OTHER ==
[~2016-09-15] VITALS: Ht 162.6 cm; Wt 79.0 kg
[~2016-09-15 00:08] MED LIST changes: +IBUP-232 PO; +OXYC1TAB63 PO; -TERC20CR VAGINAL
[2016-09-15 00:10] VITALS: BP 154/74; PULSE 95; RESP 16; TEMP 98.2; O2SAT 98
== END 2016-09-15 01:51 | disposition left against medical advice (07) ==
LOC: NED 00:08
DX: R21 Rash and other nonspecific skin eruption (principal)
CPT/HCPCS: 99281

== ENCOUNTER 2016-09-29 13:37 | Emergency (ER) | payer OTHER ==
[~2016-09-29] VITALS: Ht 162.6 cm; Wt 90.6 kg
[2016-09-29 13:45] VITALS: BP 123/68; PULSE 100; RESP 18; TEMP 97.3; O2SAT 98
--- NOTE | 2016-09-29 14:14 | PD ---
HPI Chief Complaint: Skin Problem Time Seen by Provider: 14:14 Travel History International Travel<30 days: No Contact w/Intl Traveler<30days: No Traveled to known affect area: No History of Present Illness HPI 21-year-old female presents the emergency Department with left dorsal forearm cellulitis and swelling which she feels is due to a bee sting that she received approximately a week ago. Patient states it became much more erythematous swollen and tender in the last 2 days. Patient has felt feverish last evening, but denies other symptoms. She has good strength in the left arm without numbness or tingling. Pain today is 8/10. Patient has no history of MRSA or IV drug use. She is allergic to ampicillin, Augmentin, and penicillin. PFSH Past Medical History Hx Anticoagulant Therapy: No ADHD: No Anxiety: Yes Depression: Yes Cardiovascular Problems: No Chemotherapy: No Cerebrovascular Accident: No Diabetes: No Diminished Hearing: No Gastrointestinal Disorders: Yes (constipation) Genitourinary: No Headaches: Yes Neurologic: Yes (Syncope 5-30-10) Psychiatric: Yes (ANGER DEPRESSION) Reproductive: Yes (POLYSYSTIC OVARIAN CYSTS) Respiratory: No Immunizations Current: Yes Migraines: Yes (3-4 X YEARLY) Seizures: No Sickle Cell Disease: No Thyroid Disease: No Ulcer: No ?: Not : 2 Para: 1 Miscarriage: 0 Past Surgical History Appendectomy: No Cholecystectomy: No Hysterectomy: No Other Surgery: Yes (BREAST IMPLANTS) Social History Alcohol Use: No Tobacco Use: No Substance Use: Yes (boyfriend pot and hydrocodone) Allergies-Medications (Allergen,Severity, Reaction): Coded Allergies: Augmentin (Verified Allergy, Severe, RASH, 09/29/16) Penicillin (Verified Allergy, Severe, Hives, 09/29/16) Ampicillin (Verified Allergy, Unknown, 09/29/16) Reported Meds & Prescriptions Reported Meds & Active Scripts Active Prozac (Fluoxetine HCl) 20 Mg Cap 20 Mg PO DAILY Reported Suboxone Sublingual Film (Buprenorphine-Naloxone Sublingual Film) 8-2 Mg Film 1 Film SL Unique ID number required: Review of Systems Except as stated in HPI: all other systems reviewed are Neg General / Constitutional: Positive: Fever, Chills Eyes: No: Visual changes HENT: No: Headaches Cardiovascular: No: Chest Pain or Discomfort Respiratory: No: Shortness of Breath Gastrointestinal: No: Abdominal Pain Genitourinary: No: Dysuria Musculoskeletal: No: Pain Skin: Positive Lesions, No Rash Neurologic: No: Weakness Psychiatric: No: Depression Endocrine: No: Polydipsia Hematologic/Lymphatic: No: Easy Bruising Physical Exam Narrative GENERAL: Patient appears no acute distress. SKIN: Warm and dry. Normal color. Normal turgor. Patient has 6 cm round indurated raised firm tender abscess to the left dorsal forearm with erythema extending from the elbow to the mid forearm but not fully circumferential. The wrist and hand are normal in appearance. Upper arm is normal in appearance. HEAD: Atraumatic. Normocephalic. EYES: Pupils equal and round. No scleral icterus. No injection or drainage. ENT: No nasal bleeding or discharge. Mucous membranes pink and moist. Pharynx is clear. NECK: Trachea midline. Neck is supple without significant lymphadenopathy. CARDIOVASCULAR: Regular rate and rhythm. RESPIRATORY: No accessory muscle use. Clear to auscultation. Breath sounds equal bilaterally. GASTROINTESTINAL: Abdomen soft, non-tender, nondistended. Hepatic and splenic margins not palpable. MUSCULOSKELETAL: Extremities without clubbing, cyanosis, or edema. No obvious deformities. NEUROLOGICAL: Awake and alert. No obvious cranial nerve deficits. Motor grossly within normal limits. Five out of 5 muscle strength in the arms and legs. Normal speech. PSYCHIATRIC: Appropriate mood and affect; insight and judgment normal. Data Data Last Documented VS Vital Signs Date Time Temp Pulse Resp B/P Pulse Ox O2 Delivery O2 Flow Rate FiO2 09/29/16 13:45 97.3 100 18 123/68 98 Orders Lidocai-Epi 1%-1:100,000 Inj (Xylocaine- (09/29/16 14:30) Ketorolac Inj (Toradol Inj) (09/29/16 14:30) Clindamycin Inj (Cleocin Inj) (09/29/16 14:30) Wound Culture And Gram Stain (09/29/16 14:20) MDM Medical Decision Making Medical Screen Exam Complete: Yes Emergency Medical Condition: Yes Differential Diagnosis Cellulitis. Insect bite. Abscess. Possible MRSA. Narrative Course Patient is medically stable at time of exam. I&D of abscesses performed, and culture sent to the lab. Packing is applied as well as bulky Pressure dressing. Patient is given 600 mg clindamycin IV, as well as 60 mg Toradol IM. Patient will be continued on Bactrim DS twice a day 7 days. Patient is given ibuprofen 800 mg 3 times daily with food #30. Dressing is to remain in place for the next 2 days. Patient is to follow-up in 2 days for a wound check and packing removal. Patient is to follow-up sooner with worsening symptoms as discussed. Procedures Procedure Narrative After the risks and benefits were discussed the following procedure was performed: INCISION AND DRAINAGE OF ABSCESS: The area was prepped and was sterilely draped. A subcutaneous wheal of 1 % Xylocaine with a total number 3 mL was used to anesthetize the area. The area was properly anesthetized. A number 11 scalpel was used to make a 1-cm incision across the area of the abscess. Cultures were obtained. The abscess was drained an irrigated with normal saline. Quarter inch iodoform packing was placed in the wound. Sterile dressing applied. Patient advised to have packing removed in two days. Diagnosis Primary Impression: Abscess of forearm, left Patient Instructions: Abscess Incision and Drainage (ED), General Instructions , MRSA (Methicillin Resistant Staphylococcus Aureus) (ED) Additional Instructions: I&D of abscesses performed, and culture sent to the lab. Packing is applied as well as bulky Pressure dressing. Patient is given 600 mg clindamycin IV, as well as 60 mg Toradol IM. Patient will be continued on Bactrim DS twice a day 7 days. Patient is given ibuprofen 800 mg 3 times daily with food #30. Dressing is to remain in place for the next 2 days. Patient is to follow-up in 2 days for a wound check and packing removal. Patient is to follow-up sooner with worsening symptoms as discussed. Med/Other Pt SpecificInfo: Prescription(s) given Disposition: 01 DISCHARGE HOME Condition: Stable Javier Regan Sep 29, 2016 14:14
[2016-09-29] MEDS ORDERED: LIDOCAINE 1%/EPINEPHrine 1:100,000 SOLN 20 ML VIAL INFIL ONE (14:30)
[2016-09-29] MEDS ORDERED: CLINDAMYCIN PHOS 600 MG/4 ML VIAL IM ONE (14:30)
[2016-09-29] MEDS ORDERED: KETOROLAC TROMETHAMINE 60 MG/2 ML (IM) VIAL IM ONE (14:30)
[2016-09-29] MEDS ORDERED: IBUP800T23 PO (15:12)
[2016-09-29] MEDS ORDERED: BACT800T5 PO (15:12)
== END 2016-09-29 15:17 | disposition home or self-care (01) ==
LOC: PHEFT 13:37
DX: L02.414 Cutaneous abscess of left upper limb (principal); B95.62 Methicillin resistant Staphylococcus aureus infection as the cause of diseases classified elsewhere; F41.8 Other specified anxiety disorders
CPT/HCPCS: 10061; 87070; 87184; 87186; 96372; 99283; J1885

== ENCOUNTER 2016-10-01 14:02 | Emergency (ER) | payer OTHER ==
[~2016-10-01] VITALS: Ht 162.6 cm; Wt 92.7 kg
[~2016-10-01 14:02] MED LIST changes: +BACT800T5 PO; -IBUP-232 PO; +IBUP800T23 PO; -OXYC1TAB63 PO
[2016-10-01 14:06] VITALS: BP 134/61; PULSE 77; RESP 16; TEMP 97.8; O2SAT 97
--- NOTE | 2016-10-01 14:12 | PD ---
HPI . left arm abscess f/u Chief Complaint: Wound/Suture/Staple Re-Check Time Seen by Provider: 14:12 Travel History International Travel<30 days: No Contact w/Intl Traveler<30days: No Traveled to known affect area: No History of Present Illness HPI 21 yr old female here for recheck on her left forearm abscess. She was seen on and I&D was performed with packing. Results were + for Group A strep and she is allergic to PCN. Microbiology lab was contacted for further susceptibility. I called the lab this morning and spoke with Gillian for clarification to see if any results were updated. Patient has not started bactrim yet. She gave the rx to a friend and somehow there was an argument and she never got the medicine. She tells me she is picking it up today. She is accompanied by the father of her baby. She denies any fever chills. Denies any worsening of the infection. PFSH Past Medical History Hx Anticoagulant Therapy: No ADHD: No Anxiety: Yes Depression: Yes Cardiovascular Problems: No Chemotherapy: No Cerebrovascular Accident: No Diabetes: No Diminished Hearing: No Gastrointestinal Disorders: Yes (constipation) Genitourinary: No Headaches: Yes Neurologic: Yes (Syncope 5-30-10) Psychiatric: Yes (ANGER DEPRESSION) Reproductive: Yes (POLYSYSTIC OVARIAN CYSTS) Respiratory: No Immunizations Current: Yes Migraines: Yes (3-4 X YEARLY) Seizures: No Sickle Cell Disease: No Thyroid Disease: No Ulcer: No ?: Not : 2 Para: 1 Miscarriage: 0 Past Surgical History Appendectomy: No Cholecystectomy: No Gynecologic Surgery: Yes (c section Jul 2016) Hysterectomy: No Other Surgery: Yes (BREAST IMPLANTS) Social History Alcohol Use: No Tobacco Use: Yes Substance Use: Yes (marijuana) Allergies-Medications (Allergen,Severity, Reaction): Coded Allergies: Augmentin (Verified Allergy, Severe, RASH, 10/01/16) Penicillin (Verified Allergy, Severe, Hives, 10/01/16) Ampicillin (Verified Allergy, Unknown, 10/01/16) Reported Meds & Prescriptions Reported Meds & Active Scripts Active Bactrim DS (Sulfamethoxazole-Trimethoprim) 800-160 Mg Tab 1 Tab PO BID Ibuprofen 800 Mg Tab 800 Mg PO Q8H PRN Prozac (Fluoxetine HCl) 20 Mg Cap 20 Mg PO DAILY Reported Suboxone Sublingual Film (Buprenorphine-Naloxone Sublingual Film) 8-2 Mg Film 1 Film SL Unique ID number required: Review of Systems General / Constitutional: No: Fever Eyes: No: Visual changes HENT: No: Headaches Cardiovascular: No: Chest Pain or Discomfort Respiratory: No: Shortness of Breath Gastrointestinal: No: Abdominal Pain Genitourinary: No: Dysuria Musculoskeletal: Positive: Pain (left forearm) Skin: Positive Other (left forearm abscess ), No Rash Neurologic: No: Weakness Psychiatric: No: Depression Endocrine: No: Polydipsia Hematologic/Lymphatic: No: Easy Bruising Physical Exam Narrative GENERAL: AAO x 3, no acute distress, Well-nourished, well-developed patient. SKIN: Warm and dry. No visible rashes or bruising. left forearm packing removed. No purulent matter present. there is still erythema and edema. It is slightly warm to touch. Dressing removed and relatively clean, except for one small blood spot. HEAD: Normocephalic and atraumatic. EYES: No scleral icterus. No injection or drainage. EOM intact, PERRLA ENT: No nasal drainage noted. Mucous membranes pink. Airway patent. NECK: Supple, trachea midline. No JVD. CARDIOVASCULAR: Regular rate and rhythm without murmurs, gallops, or rubs. RESPIRATORY: Breath sounds equal bilaterally. No accessory muscle use. No rhonchi or rales. GASTROINTESTINAL: Abdomen soft, non-tender, nondistended. EXTREMITIES: No cyanosis or edema. Full ROM of left upper extremity. BACK: Nontender without obvious deformity. No CVA tenderness. PSYCH: AAO x 3, normal affect. Data Data Last Documented VS Vital Signs Date Time Temp Pulse Resp B/P Pulse Ox O2 Delivery O2 Flow Rate FiO2 10/01/16 14:06 97.8 77 16 134/61 97 MDM Medical Decision Making Medical Screen Exam Complete: Yes Emergency Medical Condition: Yes Medical Record Reviewed: Yes Differential Diagnosis left forearm abscess, cellulitis, less likely DVT Narrative Course 21 yr old female here for recheck on her left forearm abscess. She was seen on and I&D was performed with packing. Results were + for Group A strep and she is allergic to PCN. Microbiology lab was contacted for further susceptibility. I called the lab this morning and spoke with Gillian for clarification to see if any results were updated. Patient has not started bactrim yet. She gave the rx to a friend and somehow there was an argument and she never got the medicine. She tells me she is picking it up today. She is accompanied by the father of her baby. She denies any fever chills. Denies any worsening of the infection. Patient seen and examined. Packing was removed. Area was cleaned and sterile dressing was applied. I personally called lab and spoke with them regarding the culture results. Susceptibility should be resulted tomorrow. I have spoken with the Charge nurse regarding these pending results. I advised patient to return to the ED tomorrow evening for follow up. Patient verbalized understanding of instructions, questions were answered, and thanked me for their care. I advised them if their condition worsens, please return to the nearest emergency room for further care. Diagnosis Primary Impression: Abscess of forearm, left Patient Instructions: General Instructions Additional Instructions: Please start the antibiotics that your prescribed 2 days ago as soon as possible. Please return to the emergency department tomorrow evening for another recheck and follow-up. Someone will contact you regarding the culture results that were obtained during your initial visit. Med/Other Pt SpecificInfo: No Change to Meds Disposition: 01 DISCHARGE HOME Condition: Stable Domonique Thomas Oct 01, 2016 14:12
== END 2016-10-01 14:43 | disposition home or self-care (01) ==
LOC: PHEFT 14:02
DX: L02.414 Cutaneous abscess of left upper limb (principal)
CPT/HCPCS: 99281

== ENCOUNTER 2016-11-26 18:18 | Emergency (ER) | payer OTHER ==
[~2016-11-26] VITALS: Ht 167.6 cm; Wt 75.0 kg
[~2016-11-26 18:18] MED LIST changes: -BACT800T5 PO; -IBUP800T23 PO
[2016-11-26 18:23] VITALS: BP 129/78; PULSE 90; RESP 18; TEMP 98.2; O2SAT 98
== END 2016-11-26 21:00 | disposition left against medical advice (07) ==
LOC: NED 18:18
DX: R68.89 Other general symptoms and signs (principal); Y09 Assault by unspecified means
CPT/HCPCS: 99281

== ENCOUNTER 2016-12-01 11:12 | Observation (INO) | payer OTHER ==
[~2016-12-01] VITALS: Ht 162.6 cm; Wt 75.0 kg
[2016-12-01 11:35] VITALS: BP 131/74; PULSE 78; PULSE 81; RESP 18; TEMP 98.2; O2SAT 98; O2SAT 99
[2016-12-01] MEDS ORDERED: SODIUM CHLOR 0.9% 1000 ML INJ 1,000 ML IV SCH (11:40)
--- NOTE | 2016-12-01 11:43 | PD ---
HPI Chief Complaint: chest pain Time Seen by Provider: 11:43 Travel History International Travel<30 days: No Contact w/Intl Traveler<30days: No History of Present Illness HPI 21-year-old female with a history of opiate addiction and abuse presents to the emergency department by EMS for evaluation of chest pain, nausea and vomiting. The patient states that she has been on a drug binge for the past 12 days taking Xanax orally and also methamphetamines IV and orally. States that yesterday she took only one Xanax and today she did not take any drugs. States that when she woke up this morning she was very hungry because she has not been eating for the last 2 weeks. States that she ate a large amount of this getting gravy that her mother could for breakfast and then soon after had lower chest pain, pointing to the epigastric region when referencing chest pain. States that when this pain began she started to have nausea and then had several episodes of nonbloody nonbilious emesis. States that she felt weak and lightheaded as though she was going to pass out after vomiting. She also had some shortness of breath at this time as well. She was given 2 nitroglycerin tablets, aspirin 162 mg and Zofran by EMS and reports her symptoms have now improved. She denies any fever, chills, cough, diarrhea, constipation, dysuria , abdominal pain. Unsure of her last menstrual period. Prior abdominal surgeries include section. Denies suicidal or homicidal ideations. No other complaints. PFSH Past Medical History Hx Anticoagulant Therapy: No ADHD: No Anxiety: Yes Depression: Yes Cardiovascular Problems: No Chemotherapy: No Cerebrovascular Accident: No Diabetes: No Diminished Hearing: No Gastrointestinal Disorders: Yes (constipation) Genitourinary: No Headaches: Yes Neurologic: Yes (Syncope 5-30-10) Psychiatric: Yes (ANGER DEPRESSION) Reproductive: Yes (POLYSYSTIC OVARIAN CYSTS) Respiratory: No Immunizations Current: Yes Migraines: Yes (3-4 X YEARLY) Seizures: No Sickle Cell Disease: No Thyroid Disease: No Ulcer: No : 2 Para: 1 Miscarriage: 0 Past Surgical History Appendectomy: No Cholecystectomy: No Gynecologic Surgery: Yes (c section Jul 2016) Hysterectomy: No Other Surgery: Yes (BREAST IMPLANTS) Social History Alcohol Use: No Tobacco Use: Yes Substance Use: Yes (marijuana) Allergies-Medications (Allergen,Severity, Reaction): Coded Allergies: Augmentin (Verified Allergy, Severe, RASH, 12/01/16) Penicillin (Verified Allergy, Severe, Hives, 12/01/16) Ampicillin (Verified Allergy, Unknown, 12/01/16) Reported Meds & Prescriptions Reported Meds & Active Scripts Active Prozac (Fluoxetine HCl) 20 Mg Cap 20 Mg PO DAILY Reported Suboxone Sublingual Film (Buprenorphine-Naloxone Sublingual Film) 8-2 Mg Film 1 Film SL Unique ID number required: Review of Systems Except as stated in HPI: all other systems reviewed are Neg Physical Exam Narrative GENERAL: Well-nourished and well-developed pleasant female patient in no acute distress. SKIN: Warm and dry. HEAD: Normocephalic and atraumatic. EYES: No injection, drainage, or hyphema noted. PERRLA. EOMI. ENT: No nasal drainage noted. Oropharynx is clear. NECK: Supple and the trachea is midline. CARDIOVASCULAR: Regular rate and rhythm. RESPIRATORY: Breath sounds are equal bilaterally with no accessory muscle use, wheezing, rhonchi, or crackles. GASTROINTESTINAL: Right upper quadrant and epigastric tenderness to palpation. No rebound tenderness or guarding. Negative McBurney's point. Abdomen is soft and nondistended. MUSCULOSKELETAL: No obvious deformities, swelling, cyanosis, or ecchymosis is present throughout the upper and lower extremities. Patient has full range of motion without any signs of neurovascular compromise. NEUROLOGICAL: Awake, alert, and oriented. Normal speech and gait. Cranial nerves are grossly intact. Data Data Last Documented VS Vital Signs Date Time Temp Pulse Resp B/P Pulse Ox O2 Delivery O2 Flow Rate FiO2 12/01/16 11:35 81 18 131/74 99 Room Air 12/01/16 11:35 98.2 Orders Complete Blood Count With Diff (12/01/16 11:40) Comprehensive Metabolic Panel (12/01/16 11:40) Lipase (12/01/16 11:40) Urinalysis - C+S If Indicated (12/01/16 11:40) Iv Access Insert/Monitor (12/01/16 11:40) Ecg Monitoring (12/01/16 11:40) Oximetry (12/01/16 11:40) Sodium Chlor 0.9% 1000 Ml Inj (Ns 1000 M (12/01/16 11:40) Sodium Chloride 0.9% Flush (Ns Flush) (12/01/16 11:45) Electrocardiogram (12/01/16 11:40) Us Abdomen Gallbladder (12/01/16 ) Ed Urine Pregnancytest Poc (12/01/16 11:40) Troponin I (12/01/16 11:40) Chest, Single Ap (12/01/16 11:40) Ckmb (Isoenzyme) Profile (12/01/16 11:40) Drug Screen, Random Urine (12/01/16 11:45) CKMB (12/01/16 11:45) CKMB% (12/01/16 11:45) Piperacil-Tazo 4.5 Gm Premix (Zosyn 4.5 (12/01/16 13:00) Admit Order (Ed Use Only) (12/01/16 12:59) NPO (12/01/16 12:59) Labs Laboratory Tests Test 12/01/16 12/01/16 11:45 12:00 White Blood Count 17.3 TH/MM3 Red Blood Count 4.80 MIL/MM3 Hemoglobin 12.4 GM/DL Hematocrit 39.0 % Mean Corpuscular Volume 81.2 FL Mean Corpuscular Hemoglobin 25.7 PG Mean Corpuscular Hemoglobin 31.7 % Concent Red Cell Distribution Width 17.5 % Platelet Count 308 TH/MM3 Mean Platelet Volume 8.8 FL Neutrophils (%) (Auto) 84.9 % Lymphocytes (%) (Auto) 9.4 % Monocytes (%) (Auto) 5.1 % Eosinophils (%) (Auto) 0.3 % Basophils (%) (Auto) 0.3 % Neutrophils # (Auto) 14.7 TH/MM3 Lymphocytes # (Auto) 1.6 TH/MM3 Monocytes # (Auto) 0.9 TH/MM3 Eosinophils # (Auto) 0.1 TH/MM3 Basophils # (Auto) 0.1 TH/MM3 CBC Comment DIFF FINAL Differential Comment Sodium Level 141 MEQ/L Potassium Level 4.2 MEQ/L Chloride Level 106 MEQ/L Carbon Dioxide Level 26.3 MEQ/L Anion Gap 9 MEQ/L Blood Urea Nitrogen 16 MG/DL Creatinine 0.85 MG/DL Estimat Glomerular Filtration 85 ML/MIN Rate Random Glucose 94 MG/DL Calcium Level 8.2 MG/DL Total Bilirubin 0.3 MG/DL Aspartate Amino Transf 90 U/L (AST/SGOT) Alanine Aminotransferase 113 U/L (ALT/SGPT) Alkaline Phosphatase 85 U/L Total Creatine Kinase 116 U/L Creatine Kinase MB 2.0 NG/ML Troponin I LESS THAN 0.02 NG/ML Total Protein 6.8 GM/DL Albumin 3.2 GM/DL Lipase 318 U/L Urine Color YELLOW Urine Turbidity CLEAR Urine pH 7.0 Urine Specific [place] 1.021 Urine Protein NEG mg/dL Urine Glucose (UA) NEG mg/dL Urine Ketones NEG mg/dL Urine Occult Blood NEG Urine Nitrite NEG Urine Bilirubin NEG Urine Urobilinogen LESS THAN 2.0 MG/DL Urine Leukocyte Esterase NEG Urine RBC 1 /hpf Urine WBC 4 /hpf Urine Squamous Epithelial 2 /hpf Cells Urine Bacteria RARE /hpf Urine Mucus FEW /lpf Microscopic Urinalysis Comment CULT NOT INDICATED MDM Medical Decision Making Medical Screen Exam Complete: Yes Emergency Medical Condition: Yes Differential Diagnosis Gastritis versus cholelithiasis versus cholecystitis versus withdrawal symptoms versus pleurisy versus ACS unlikely Narrative Course 21-year-old female presents to the emergency department for evaluation of epigastric pain with nausea and vomiting after eating this morning. Patient is afebrile, vital signs are stable. On physical examination she has right upper quadrant tenderness to palpation in epigastric tenderness to palpation. IV access is obtained, labs were drawn and sent. Patient is placed on cardiac telemetry and pulse oximetry monitoring. EKG shows sinus rhythm with no acute ST elevations or depressions. Patient is administered IV fluids. ED urine test is negative. CBC shows an elevated white blood cell count of 17.3. CMP shows elevated LFTs with AST 90, ALT 113. Troponin is less than 0.02. Urinalysis shows rare bacteria and few mucus. Chest x-ray is negative for any acute abnormalities. Ultrasound of the gallbladder shows cholelithiasis and mild wall thickening and pericholecystic fluid indicating possible acute cholecystitis. Mild hepatomegaly. Patient is administered Zosyn IV and fluids. Patient will be admitted to general surgery service. I discussed the case with my attending physician Dr. Miles who is aware of the patients history, physical examination findings, and treatment plan. Physician Communication Physician Communication I spoke with Dr. Juan M baron who agrees to admit the patient to his service. Diagnosis Primary Impression: Acute cholecystitis Admitting Information Admitting Physician Requests: Admit Ladan Amezcua December 01, 2016 11:43
[2016-12-01] MEDS ORDERED: SODIUM CHLORIDE 0.9% FLUSH 10 ML FLUSH IV FLUSH PRN ×2 (11:45→16:30)
[2016-12-01] MEDS ORDERED: PROPOFOL 200 MG/20 ML AMP IV ONE (12:00)
[2016-12-01] MEDS ORDERED: ONDANSETRON HCL 4 MG/2 ML VIAL IV PUSH ONE (12:00)
[2016-12-01] MEDS ORDERED: KETOROLAC TROMETHAMINE 60 MG/2 ML (IM) VIAL IM ONE (12:00)
[2016-12-01 12:04] LABS: AUTOMATED NEUTROPHIL # 14.7 TH/MM3 (1.8-7.7); BASOPHIL # 0.1 TH/MM3 (0-0.2); BASOPHIL % 0.3 % (0.0-2.0); EOSINOPHIL # 0.1 TH/MM3 (0-0.4); EOSINOPHIL % 0.3 % (0.0-4.0); HEMO FLAGS DIFF FINAL; LYMPH % 9.4 % (9.0-44.0); LYMPHOCYTE # 1.6 TH/MM3 (1.0-4.8); MEAN CELL VOLUME 81.2 FL (80.0-100.0); MEAN CORPUSCULAR HEMOGLOBIN 25.7 PG (27.0-34.0); MEAN CORPUSCULAR HGB CONC 31.7 % (32.0-36.0); MONO % 5.1 % (0.0-8.0); NEUT % 84.9 % (16.0-70.0); PLATELET COUNT 308 TH/MM3 (150-450); RED CELL DISTRIBUTION WIDTH 17.5 % (11.6-17.2); WHITE BLOOD COUNT 17.3 TH/MM3 (4.0-11.0)
[2016-12-01 12:22] LABS: ANION GAP 9 MEQ/L (5-15); AST (GOT) 90 U/L (16-38); BICARBONATE 26.3 MEQ/L (21.0-32.0); BLOOD UREA NITROGEN 16 MG/DL (7-18); CHLORIDE 106 MEQ/L (98-107); GLOMERULAR FILTRATION RATE 85 ML/MIN (>89); POTASSIUM 4.2 MEQ/L (3.5-5.1); SODIUM (NA) 141 MEQ/L (136-145)
--- NOTE | 2016-12-01 12:23 | RADRPT ---
EXAM DATE/TIME: 12/01/2016 11:45 [facility] COMPARISON: CHEST PA & LAT, July 21, 2015, 0:14. INDICATIONS : Chest pains with shortness of breath. MEDICAL HISTORY : None. SURGICAL HISTORY : None. ENCOUNTER: Initial ACUITY: 1 day PAIN SCORE: 0/10 LOCATION: Bilateral chest FINDINGS: A single view of the chest demonstrates the lungs to be symmetrically aerated without evidence of mas s, infiltrate or effusion. The cardiomediastinal contours are unremarkable. Osseous structures are intact. CONCLUSION: No acute disease. Saurabh Mckeon MD on December 01, 2016 at 12:21 Board Certified Radiologist. This report was verified electronically.
[2016-12-01 12:27] LABS: ALKALINE PHOSPHATASE 85 U/L (45-117); ALT (GPT) 113 U/L (9-42); CREATINE KINASE 116 U/L (26-192); TOTAL BILIRUBIN ADULT 0.3 MG/DL (0.2-1.0)
[2016-12-01 12:42] LABS: BACTERIA, URINE RARE /hpf; BLOOD, URINE NEG (NEG); COMMENT (UR) CULT NOT INDICATED; CULTURE IF INDICATED CULT NOT INDICATED; GLUCOSE,URINE NEG (NEG); KETONE, URINE NEG (NEG); MUCUS URINE FEW /lpf (OCC); NITRITE,URINE NEG (NEG); SQUAMOUS EPITHELIAL CELL URINE 2 /hpf (0-5); URINE COLOR YELLOW (YELLW/STRAW)
--- NOTE | 2016-12-01 12:43 | RADRPT ---
EXAM DATE/TIME: 12/01/2016 12:04 [facility] COMPARISON: No previous studies available for comparison. INDICATIONS : Right upper quadrant pain. MEDICAL HISTORY : Syncope. Migraines. Polycystic ovarian cysts. Substance use. Depression. Anxiety. SURGICAL HISTORY : section. Breast implants. ENCOUNTER: Initial ACUITY: 1 day PAIN SCORE: 10 LOCATION: Right upper quadrant MEASUREMENTS: LIVER: 18.6 cm length COMMON DUCT: 4 mm RIGHT KIDNEY: 11.5 x 5.6 x 4.6 cm FINDINGS: LIVER: Normal echotexture without focal lesion or ductal dilatation. COMMON DUCT: No intraluminal mass or stone visualized. GALLBLADDER: Small shadowing gallstones in the dependent portion of the gallbladder. Mild wall thickening measurin g 3-4 mm. Pericholecystic fluid noted. PANCREAS: The visualized portions are within normal limits. RIGHT KIDNEY: No evidence of hydronephrosis, stone, or mass. CONCLUSION: 1. Cholelithiasis. Mild wall thickening and pericholecystic fluid indicating possible acute cholecyst itis. 2. Mild hepatomegaly. Leon Merchant MD on December 01, 2016 at 12:40 Board Certified Radiologist. This report was verified electronically.
[2016-12-01] MEDS ORDERED: PIPERACIL-TAZO 4.5 GM PREMIX 100 ML IV ONE (13:00)
[2016-12-01 13:20] VITALS: BP 132/77; PULSE 76; RESP 16; O2SAT 100
--- NOTE | 2016-12-01 16:22 | MH ---
cc: FERNANDO CULVER MD DATE OF ADMISSION: 12/01/2016 CHIEF COMPLAINT Abdominal pain HISTORY OF PRESENT ILLNESS This is a 21-year-old female who developed acute severe epigastric and substernal chest pain this morning, associated with nausea and vomiting. She did have some mild abdominal discomfort yesterday and she has had decreased appetite for a couple of days. She had fried chicken for dinner last night, biscuits and gravy this morning after not having eaten a lot over the last couple of days. She has a history of narcotic abuse and also was recently taking quite a bit of Xanax. In the past she has been on Subutex and Prozac but she is not on either of these medications currently. She was evaluated in the emergency department and noted to have leukocytosis as well as gallbladder ultrasound showing cholelithiasis, mild wall thickening and pericholecystic fluid. PAST SURGICAL HISTORY: 1. 2. Breast augmentation. PAST MEDICAL HISTORY: Substance abuse. ALLERGIES PENICILLIN. Gives her hives. However, she did receive Zosyn without any symptoms. SOCIAL HISTORY: Recent Xanax use. She sometimes uses opiate pills and occasionally has used IV narcotics in the past. She does not drink alcohol. She smokes about half pack of cigarettes daily. FAMILY HISTORY: Noncontributory. REVIEW OF SYSTEMS: 10-point review of systems negative except as mentioned in the HPI. PHYSICAL EXAMINATION General: Overweight, alert and oriented 21-year-old female not in distress. Vital signs: Temperature is 98.2, heart rate 76, respirations 16, blood pressure 132/77, 100% oxygen saturation on room air. Head: Normocephalic, atraumatic. Eyes: Pupils equal round and reactive to light bilaterally. No jaundice. Cardiovascular: Regular rate and rhythm. Lungs: Clear to auscultation bilaterally without wheezing or rhonchi. Abdomen: Nondistended. Moderate to severe right upper quadrant tenderness, otherwise soft and nontender. Skin: Warm, dry, non jaundiced. Extremities: No cyanosis or edema. ASSESSMENT/PLAN 21-year-old female who has an evaluation consistent with acute cholecystitis. I recommend to proceed with laparoscopic cholecystectomy, possible open. I discussed the details and risks of the procedure with the patient. She does desire to proceed. She also has a history of narcotic abuse and recently Xanax use and so will keep an eye out for withdrawal symptoms. MD OCTAVIO Heath/RAMÍREZ /2:47 PM /3:23 PM
[2016-12-01 16:30] VITALS: BP 132/80; PULSE 62; RESP 16; O2SAT 100
[2016-12-01] MEDS ORDERED: ONDANSETRON HCL 4 MG/2 ML VIAL IV PRN (16:30)
[2016-12-01] MEDS ORDERED: NALOXONE HCL 0.4 MG/ML AMP IV PRN (16:30)
[2016-12-01] MEDS ORDERED: Post-op Orders (for Pharmacy) MISC XX ONE (16:30)
[2016-12-01] MEDS ORDERED: MORPHINE SULFATE 4 MG/ML INJ IV PRN (16:30)
[2016-12-01] MEDS: SODIUM CHLOR 0.9% 1000 ML INJ 1,000 ML IV SCH ×2 (16:36→21:15)
[2016-12-01 17:30] VITALS: BP 136/87; PULSE 66; RESP 18; TEMP 97.9; O2SAT 99
[2016-12-01] MEDS ORDERED: BUPIVACAINE/EPINEPHRINE 0.25% 50 ML VIAL ONE (18:25)
[2016-12-01] MEDS ORDERED: HYDROmorphone HCL PF 2 MG/ML VIAL ONE (18:58)
[2016-12-01] MEDS ORDERED: ACETAMINOPHEN 1000 MG/100 ML VIAL IV ONE (18:58)
[2016-12-01] MEDS ORDERED: fentaNYL CITRATE 250 MCG/5 ML AMP ONE (19:20)
[2016-12-01] MEDS ORDERED: MIDAZOLAM HCL 2 MG/2 ML VIAL ONE (19:27)
[2016-12-01 20:00] VITALS: BP 128/82; PULSE 70; RESP 19; TEMP 96.3; O2SAT 97
--- NOTE | 2016-12-01 20:42 | PD.OP ---
cc: Edson Mcgowan MD Operative Report Date of Surgery: December 01, 2016 Preoperative Diagnosis: (1) Acute cholecystitis Postoperative Diagnosis: (1) Acute cholecystitis Procedure: Laparoscopic cholecystectomy Anesthesia: GETA Surgeon: Edson Mcgowan Motion Picture Printer(s): BECCA MENA Operation and Findings: Complications: None apparent EBL: 10 cc Operative findings: Inflamed edematous gallbladder Procedure in detail: The patient was taken to the operating room and placed in the supine position. General endotracheal anesthesia was induced. The abdomen was prepped and draped in usual sterile fashion and a surgical timeout was performed to verify correct patient procedure and site. Appropriate perioperative antibiotics were administered. Local anesthetic was injected in the skin and subcutaneous tissue superior to the umbilicus and a 5 mm incision performed. The abdomen was entered using the Optiview 5 mm trocar with direct laparoscopic visualization. The abdomen was then insufflated to 15 mmHg with CO2 gas which the patient tolerated well. Next a 12 mm port was placed in the epigastrium and two 5 mm ports in the right upper quadrant and right lateral abdomen. The patient was placed in reverse Trendelenburg position and turned slightly to the left. The gallbladder was distended with an edematous gallbladder wall. Attention was turned to the right upper quadrant and the dome of the gallbladder was grasped and retracted cephalad. The infundibulum was retracted laterally to expose Calot's triangle. Blunt dissection and judicious use of electrocautery was used to expose the cystic duct and the cystic artery directly entering the gallbladder. Two clips were placed proximally on each of these structures and one distally and they were transected. The gallbladder was then removed from the liver bed using electrocautery. Hemostasis was achieved. The gallbladder was then removed from the abdomen using an Endo Catch bag. The clips were in place on the cystic duct and cystic artery stumps with no bleeding or bile leakage. At this point, the abdomen was allowed to desufflate and trochars were removed. The fascia at the 12 mm port site was closed with 0 Vicryl suture. Skin was closed with subcuticular 4-0 Monocryl as well as Dermabond. The patient tolerated the procedure well and was extubated and taken to PACU in stable condition. All sponge and instrument counts were correct. Edson Mcgowan MD December 01, 2016 20:42
[2016-12-01] MEDS ORDERED: oxyCODONE/ACETAMINOPHEN 5 MG/325 MG TAB PO PRN (20:45)
[2016-12-01] MEDS ORDERED: MORPHINE SULFATE 4 MG/ML INJ ONE (21:01)
[2016-12-01] MEDS: SODIUM CHLORIDE 0.9% FLUSH 10 ML FLUSH IV FLUSH SCH (21:15)
[2016-12-01] MEDS ORDERED: DO NOT ADM ANY ANTICOAGULANT DRUGS PRN (21:30)
[2016-12-01] MEDS: oxyCODONE/ACETAMINOPHEN 5 MG/325 MG TAB PO PRN (22:19)
[2016-12-02 01:38] LABS: AMPHETAMINE, URINE NEG (NEG); BARBITURATES, URINE NEG (NEG); COCAINE, URINE NEG (NEG)
[2016-12-02] MEDS: oxyCODONE/ACETAMINOPHEN 5 MG/325 MG TAB PO PRN (03:35)
[2016-12-02 04:00] VITALS: BP 119/64; PULSE 57; RESP 18; TEMP 96.5; O2SAT 97
--- NOTE | 2016-12-02 06:21 | EKG ---
Date Performed: 12/01/2016 Time Performed: 11:46:51 PTAGE: 21 years EKG: Sinus rhythm NORMAL ECG PREVIOUS TRACING : 01/13/2014 16.04 Compared to prior tracing no significant change DOCTOR: Ebony Bell Interpretating Date/Time 12/02/2016 06:19:54
[2016-12-02] MEDS: SODIUM CHLORIDE 0.9% FLUSH 10 ML FLUSH IV FLUSH SCH (07:08)
[2016-12-02 08:00] VITALS: BP 128/76; PULSE 64; RESP 16; TEMP 97.9; O2SAT 99
[2016-12-02] MEDS ORDERED: OXYC1TAB63 PO (08:41)
--- NOTE | 2016-12-02 08:43 | HHI.PR ---
Subjective Subjective Notes Stable post op. Mild pain. Objective Vitals/I&O Vital Signs Date Time Temp Pulse Resp B/P Pulse Ox O2 Delivery O2 Flow Rate FiO2 12/02/16 04:00 96.5 57 18 119/64 97 12/01/16 21:20 Room Air Labs Laboratory Tests Test 12/01/16 12/01/16 11:45 12:00 White Blood Count 17.3 Red Blood Count 4.80 Hemoglobin 12.4 Hematocrit 39.0 Mean Corpuscular Volume 81.2 Mean Corpuscular Hemoglobin 25.7 Mean Corpuscular Hemoglobin 31.7 Concent Red Cell Distribution Width 17.5 Platelet Count 308 Mean Platelet Volume 8.8 Neutrophils (%) (Auto) 84.9 Lymphocytes (%) (Auto) 9.4 Monocytes (%) (Auto) 5.1 Eosinophils (%) (Auto) 0.3 Basophils (%) (Auto) 0.3 Neutrophils # (Auto) 14.7 Lymphocytes # (Auto) 1.6 Monocytes # (Auto) 0.9 Eosinophils # (Auto) 0.1 Basophils # (Auto) 0.1 CBC Comment DIFF FINAL Differential Comment Sodium Level 141 Potassium Level 4.2 Chloride Level 106 Carbon Dioxide Level 26.3 Anion Gap 9 Blood Urea Nitrogen 16 Creatinine 0.85 Estimat Glomerular Filtration 85 Rate Random Glucose 94 Calcium Level 8.2 Total Bilirubin 0.3 Aspartate Amino Transf 90 (AST/SGOT) Alanine Aminotransferase 113 (ALT/SGPT) Alkaline Phosphatase 85 Total Creatine Kinase 116 Creatine Kinase MB 2.0 Troponin I LESS THAN 0.02 Total Protein 6.8 Albumin 3.2 Lipase 318 Urine Color YELLOW Urine Turbidity CLEAR Urine pH 7.0 Urine Specific [place] 1.021 Urine Protein NEG Urine Glucose (UA) NEG Urine Ketones NEG Urine Occult Blood NEG Urine Nitrite NEG Urine Bilirubin NEG Urine Urobilinogen LESS THAN 2.0 Urine Leukocyte Esterase NEG Urine RBC 1 Urine WBC 4 Urine Squamous Epithelial 2 Cells Urine Bacteria RARE Urine Mucus FEW Microscopic Urinalysis Comment CULT NOT INDICATED Urine Opiates Screen NEG Urine Barbiturates Screen NEG Urine Amphetamines Screen NEG Urine Benzodiazepines Screen POS Urine Cocaine Screen NEG Urine Cannabinoids Screen POS Narrative Exam NAD Abd soft, post op ttp, inc c/d/i A/P Assessment and Plan 21 yo F POD 1 s/p lap lorrie. Stable post op. Low fat diet. Activity no heavy lifting. D/c home. Rx for percocet (limited quantity due to recent h/o narcotic abuse). F/u in two weeks in my office. Juan M,Edson ANSARI December 02, 2016 08:43
== END 2016-12-02 10:55 | disposition home or self-care (01) ==
LOC: NEPD 11:12 → NEDA 13:01 → INTOOBSV 13:01 → N07B 17:15
PROVIDERS: ADMIT Surgery; ATTEND Surgery
DX: R07.9 Chest pain, unspecified (principal); R11.2 Nausea with vomiting, unspecified; R53.1 Weakness; R42 Dizziness and giddiness; R06.02 Shortness of breath; F41.9 Anxiety disorder, unspecified; F32.9 Major depressive disorder, single episode, unspecified; F17.210 Nicotine dependence, cigarettes, uncomplicated; F12.10 Cannabis abuse, uncomplicated; F15.10 Other stimulant abuse, uncomplicated; R10.13 Epigastric pain; R79.89 Other specified abnormal findings of blood chemistry; R16.0 Hepatomegaly, not elsewhere classified; K80.00 Calculus of gallbladder with acute cholecystitis without obstruction; F11.20 Opioid dependence, uncomplicated
CPT/HCPCS: 00790; 47562; 71010; 76705; 80053; 80307; 81001; 82550; 82552; 83690; 84484; 84703; 85025; 88304; 93005; 96360; 99285; G0378; J1885; J2250; J2270; J2405; J2543; J3010; J7030; J0131; J1170

== ENCOUNTER 2017-02-15 23:43 | Emergency (ER) | payer SELFPAY ==
[~2017-02-15] VITALS: Ht 165.1 cm; Wt 83.2 kg
[~2017-02-15 23:43] MED LIST changes: +OXYC1TAB63 PO
[2017-02-15 23:46] VITALS: BP 131/85; PULSE 101; RESP 16; TEMP 98.2; O2SAT 98
[2017-02-16 01:18] VITALS: BP 131/85; PULSE 96; RESP 18; TEMP 98.2
[2017-02-16] MEDS ORDERED: CLIN1CAP5 PO (01:43)
--- NOTE | 2017-02-16 01:43 | PD ---
HPI Chief Complaint: Skin Problem Time Seen by Provider: 01:36 Travel History International Travel<30 days: No Contact w/Intl Traveler<30days: No Traveled to known affect area: No History of Present Illness HPI 21-year-old female presents to the emergency department by private transportation for evaluation of abscess to the dorsum of her right hand. Patient states she is not sure how this occurred but she is exposed to persons in her neighborhood with reportedly skin infections. Patient is left-handed. No ascending erythema or axillary lymphadenopathy. Patient states she thinks she had a fever a few days ago but none today. Patient denies . The patient rates her pain 6/10 intensity. PFSH Past Medical History Narrative Medical Constipation migraines cholecystectomy tobacco use substance use; nursing notes reviewed Hx Anticoagulant Therapy: No ADHD: No Anxiety: Yes Depression: Yes Cancer: No Cardiovascular Problems: No Chemotherapy: No Cerebrovascular Accident: No Diabetes: No Diminished Hearing: No Endocrine: No Gastrointestinal Disorders: Yes (constipation) Genitourinary: No Headaches: Yes Immune Disorder: No Implanted Vascular Access Dvce: No Musculoskeletal: No Neurologic: Yes (SYNCOPAL EPISODE) Psychiatric: Yes Reproductive: No Respiratory: No Immunizations Current: Yes Migraines: Yes (3-4 X YEARLY) Seizures: No Sickle Cell Disease: No Thyroid Disease: No Ulcer: No Tetanus Vaccination: < 5 Years Influenza Vaccination: Yes ?: Unknown LMP: 02/02/17 : 2 Para: 1 Miscarriage: 0 Past Surgical History Appendectomy: No Cholecystectomy: Yes Gynecologic Surgery: Yes (C SECTION) Hysterectomy: No Other Surgery: Yes (BREAST IMPLANTS) Social History Alcohol Use: No Tobacco Use: Yes (10 CIGARETTES DAILY) Substance Use: Yes Allergies-Medications (Allergen,Severity, Reaction): Coded Allergies: Augmentin (Verified Allergy, Severe, RASH, 02/16/17) Penicillin (Verified Allergy, Severe, Hives, 02/16/17) Ampicillin (Verified Allergy, Unknown, 02/16/17) Reported Meds & Prescriptions Reported Meds & Active Scripts Active Reported Suboxone Sublingual Film (Buprenorphine-Naloxone Sublingual Film) 8-2 Mg Film 1 Film SL Unique ID number required: Review of Systems General / Constitutional: Positive: Fever, No: Chills (2 days ago) HENT: No: Congestion Cardiovascular: No: Chest Pain or Discomfort Respiratory: No: Shortness of Breath Gastrointestinal: No: Vomiting, Abdominal Pain Genitourinary: No: Flank Pain Musculoskeletal: Positive: Limited ROM, Edema (right hand right hand right hand ), Pain, No: Myalgias, Arthralgias Skin: Positive Rash, Positive Lumps (right hand right hand) Neurologic: No: Weakness Hematologic/Lymphatic: No: Lymph Node Enlargement Physical Exam Narrative GENERAL: Well-developed well-nourished female in no acute distress no respiratory distress SKIN: Warm and dry. Dorsum of right hand with erythema induration and central pointing with fluctuance; capillary refill brisk and less than 2 seconds per digit. Slight decreased range of motion for flexion secondary to soft tissue swelling to the dorsum of the hand normal extension of each digit. No ascending erythema. MUSCULOSKELETAL: No cyanosis, or edema. No axillary lymphadenopathy. Data Data Last Documented VS Vital Signs Date Time Temp Pulse Resp B/P Pulse Ox O2 Delivery O2 Flow Rate FiO2 02/16/17 01:20 96 18 02/16/17 01:18 98.2 131/85 02/15/17 23:46 98 MDM Medical Decision Making Medical Screen Exam Complete: Yes Emergency Medical Condition: Yes Medical Record Reviewed: Yes Differential Diagnosis Abscess, cellulitis, mass, tenosynovitis Narrative Course Patient presents with four-day history of fluctuant area of focal abscess to the dorsum of the right hand; we'll proceed with I&D Procedures Procedure Narrative After the risks and benefits were discussed the following procedure was performed: INCISION AND DRAINAGE OF ABSCESS: The area was prepped and was sterilely draped. A subcutaneous wheal of [-] % Xylocaine with a total number [-] mL was used to anesthetize the area. The area was properly anesthetized. A number [-] scalpel was used to make a [-] -cm incision across the area of the abscess. Cultures were obtained. The abscess was drained an irrigated with normal saline. Quarter inch iodoform packing was placed in the wound. Sterile dressing applied. Patient advised to have packing removed in two days. Diagnosis Primary Impression: Abscess of hand, right Referrals: Primary Care Physician 2 days Patient Instructions: General Instructions Additional Instructions: Complete course of antibiotic as prescribed Packing removal in 2 days Take acetaminophen or ibuprofen per package instructions as needed for pain or for fever 100.4F or greater Return to the emergency department for any concerns or change in condition Med/Other Pt SpecificInfo: Prescription(s) given Scripts Clindamycin 150 Mg Vml355 Mg PO Q6H 7 Days Ref 0 Prov:Gena Ross MD 02/16/17 Gena Ross MD Feb 16, 2017 01:43
[2017-02-16] MEDS ORDERED: LIDOCAINE HCL 1% PF 30 ML VIAL INFIL ONE (01:45)
[2017-02-16] MEDS ORDERED: CLINDAMYCIN 150 MG CAP PO ONE (01:45)
[2017-02-16 02:37] VITALS: BP 132/80; PULSE 88; RESP 18; O2SAT 98
== END 2017-02-16 02:38 | disposition home or self-care (01) ==
LOC: PHED 23:43
DX: L02.511 Cutaneous abscess of right hand (principal); B96.89 Other specified bacterial agents as the cause of diseases classified elsewhere
CPT/HCPCS: 10061; 87070; 87077; 87185; 87186

== ENCOUNTER 2017-09-10 22:37 | Emergency (ER) | payer OTHER ==
[~2017-09-10] VITALS: Ht 162.6 cm; Wt 90.3 kg
[~2017-09-10 22:37] MED LIST changes: +CLIN150C14 PO; -OXYC1TAB63 PO; -PROZ20CA11 PO
[2017-09-10 22:38] VITALS: BP 164/94; PULSE 133; RESP 18; TEMP 97.6; O2SAT 100
[2017-09-10] MEDS ORDERED: LIDOCAINE 2%/EPINEPHrine 1:100,000 20ML MDV ONE (23:57)
[2017-09-10] MEDS ORDERED: LIDOCAINE 1%/EPINEPHrine 1:100,000 SOLN 30 ML VIAL ONE (23:58)
--- NOTE | 2017-09-10 23:58 | PD ---
HPI Chief Complaint: Skin Problem Time Seen by Provider: 23:51 Travel History International Travel<30 days: No Contact w/Intl Traveler<30days: No Traveled to known affect area: No History of Present Illness HPI The patient is a 22-year-old female, IV drug abuser that has frequent visits for skin abscesses because of her IV drug abuse. She comes in today with a left antecubital fossa abscess that has been present for about 7 days. Her last tetanus shot was 2015. PFSH Past Medical History Hx Anticoagulant Therapy: No ADHD: No Bipolar Disorder: Yes Anxiety: Yes Depression: Yes Cancer: No Cardiovascular Problems: No Chemotherapy: No Cerebrovascular Accident: No Diabetes: No Diminished Hearing: No Endocrine: No Gastrointestinal Disorders: Yes (constipation) Genitourinary: No Headaches: Yes Immune Disorder: No Implanted Vascular Access Dvce: No Musculoskeletal: No Neurologic: Yes (SYNCOPAL EPISODE) Psychiatric: Yes Reproductive: No Respiratory: No Immunizations Current: Yes Migraines: Yes (3-4 X YEARLY) Seizures: No Sickle Cell Disease: No Thyroid Disease: No Ulcer: No ?: Not LMP: 08/27/17 : 2 Para: 2 Miscarriage: 0 Ovarian Cysts: Yes Past Surgical History Appendectomy: No Section: Yes (X1) Cholecystectomy: Yes (AGE 21) Gynecologic Surgery: Yes (C SECTION) Hysterectomy: No Other Surgery: Yes (BREAST IMPLANTS) Social History Alcohol Use: No Tobacco Use: Yes ("ONE PACK PER WEEK") Substance Use: Yes (STATES "UNKNOWN" 09/10/17) Allergies-Medications (Allergen,Severity, Reaction): Coded Allergies: amoxicillin (Unverified Allergy, Severe, RASH, 09/10/17) clavulanic acid (Unverified Allergy, Severe, RASH, 09/10/17) penicillin G (Unverified Allergy, Severe, Hives, 09/10/17) ampicillin (Unverified Allergy, Unknown, 09/10/17) Reported Meds & Prescriptions Reported Meds & Active Scripts Active Bactrim DS (Sulfamethoxazole-Trimethoprim) 800-160 Mg Tab 1 Tab PO BID Review of Systems Except as stated in HPI: all other systems reviewed are Neg Physical Exam Narrative GENERAL: Well-nourished, well-developed patient in slight apparent distress with her left antecubital fossa abscess. Her vital signs show heart rate of 133 and blood pressure 164/94 but otherwise are normal. SKIN: Focused skin assessment warm/dry. There is a 2 cm abscess of the left antecubital fossa. There is a 3 cm diameter cellulitic area surrounding this abscess. No lymphadenitis/red streak is seen. HEAD: Normocephalic. EYES: No scleral icterus. No injection or drainage. NECK: Supple, trachea midline. No JVD or lymphadenopathy. CARDIOVASCULAR: Regular rate and rhythm without murmurs, gallops, or rubs. RESPIRATORY: Breath sounds equal bilaterally. No accessory muscle use. GASTROINTESTINAL: Abdomen soft, non-tender, nondistended. MUSCULOSKELETAL: No cyanosis, or edema. BACK: Nontender without obvious deformity. No CVA tenderness. Data Data Last Documented VS Vital Signs Date Time Temp Pulse Resp B/P (MAP) Pulse Ox O2 Delivery O2 Flow Rate FiO2 09/10/17 22:38 97.6 133 18 164/94 (117) 100 Orders Orders Lidocai-Epi 1%-1:100,000 Inj (Xylocaine- (09/11/17 00:00) Lidocai-Epi 2%-1:100,000 Inj (Xylocaine- (09/10/17 23:57) Lidocai-Epi 1%-1:100,000 Inj (Xylocaine- (09/10/17 23:58) Sulfamet-Trimeth Ds 800-160 Mg (Bactrim (09/11/17 01:00) Ed Discharge Order (09/11/17 01:00) MDM Medical Decision Making Medical Screen Exam Complete: Yes Emergency Medical Condition: Yes Medical Record Reviewed: Yes Differential Diagnosis Abscess, cellulitis, hematoma Narrative Course The patient has an abscess caused by IV needle use. A large amount of pus was recovered. There is still some cellulitis and the patient will benefit from Septra DS. She is to return if there are any problems with the abscess closing up prematurely. She is given peroxide and Q-tips to use daily to clean the abscess out for the next 4-5 days. Procedures Procedure Narrative The area was prepped with Betadine. Under sterile technique a field block was done with lidocaine with epinephrine. A 1 cm incision was made over the abscess. An extremely large amount of pus was recovered from the abscess cavity and loculations were broken up and the cavity was cleaned with peroxide moistened Q-tips. The patient tolerated the procedure surprisingly well. Diagnosis Primary Impression: Encounter for drainage of abscess Additional Impressions: IV drug abuse Cellulitis Additional Instructions: In the next 5-7 days it is a good idea to clean the abscess cavity once daily with peroxide moistened Q-tips. This keeps the wound open and keeps the pus flowing out. Follow-up with your primary care physician next week. Please follow-up with [facility] or Narcotics Anonymous to help you stop this IV drug abuse. Med/Other Pt SpecificInfo: Prescription(s) given Scripts Sulfamethoxazole-Trimethoprim (Bactrim DS) 800-160 Mg Tab 1 TAB PO BID for Infection, #20 TAB 0 Refills Prov: Martín Arndt MD 09/11/17 Disposition: 01 DISCHARGE HOME Condition: Stable Martín Arndt MD Sep 10, 2017 23:58
[2017-09-11] MEDS ORDERED: LIDOCAINE 1%/EPINEPHrine 1:100,000 SOLN 20 ML VIAL INFIL ONE
[2017-09-11] MEDS ORDERED: BACT800T5 PO (00:58)
[2017-09-11] MEDS ORDERED: SULFAMETHOXAZOLE-TRIMETHOPRIM DS 800-160 MG TAB PO ONE (01:00)
[2017-09-11 01:19] VITALS: BP 142/85
== END 2017-09-11 01:23 | disposition home or self-care (01) ==
LOC: PHED 22:37
DX: L02.414 Cutaneous abscess of left upper limb (principal); F19.10 Other psychoactive substance abuse, uncomplicated
CPT/HCPCS: 10060